=== PATIENT | female | born 2000 | race Hispanic/Latino ===

== ENCOUNTER 2023-09-30 19:23 | Inpatient (IN) | payer MEDICAID, OTHER ==
[~2023-09-30 19:23] MED LIST: Bupivacaine 0.25% HCL 30 ML VIAL ONE; Bupivacaine PF 0.5% 30 ML VIAL ONE; Lidocaine 2% MPF 10 ML AMP (For Epidural Use) ONE
[2023-09-30] MEDS ORDERED: HYDROcodone/Acetaminophen 5/325 mg Tablet PO PRN (20:54)
[2023-09-30] MEDS ORDERED: Oxytocin 30 units/NS 500 ML 500 ML IV SCH ×3 (20:54)
[2023-09-30] MEDS ORDERED: Diphenoxylate HCl/Atropine Tablet PO PRN (20:54)
[2023-09-30] MEDS ORDERED: Tranexamic Acid 1,000 MG/10 ML VIAL IVP PRN (20:54)
[2023-09-30] MEDS ORDERED: Acetaminophen 500 MG TAB PO PRN (20:54)
[2023-09-30] MEDS ORDERED: Lidocaine 1% (PF) 30 ML VIAL SC PRN (20:54)
[2023-09-30] MEDS ORDERED: Carboprost 250 MCG/ML AMP IM PRN (20:54)
[2023-09-30] MEDS ORDERED: Misoprostol 200 MCG TAB PR PRN (20:54)
[2023-09-30] MEDS ORDERED: Ibuprofen 800 MG TAB PO PRN (20:54)
[2023-09-30] MEDS ORDERED: fentaNYL 50 mcg/mL 1 mL Vial SLOW IVP PRN (20:54)
[2023-09-30] MEDS ORDERED: Ondansetron PF 4 MG/2 ML Vial IVP PRN (20:54)
[2023-09-30] MEDS ORDERED: Promethazine HCl 25 MG/ML VIAL IM PRN (20:54)
[2023-09-30] MEDS ORDERED: Methylergonovine 0.2 MG/ML VIAL IM PRN (20:54)
[2023-09-30] MEDS: Misoprostol 100 MCG TAB PO SCH (21:11)
[2023-09-30 21:44] LABS: Hematocrit 33.8 % (34.9-44.5); Hemoglobin 11.4 g/dL (12.0-15.5); Mean Corpuscular HGB CONC 33.7 g/dL (32.0-36.0); Mean Corpuscular Hemoglobin 26.2 pg (27.0-33.0); Mean Corpuscular Volume 77.7 fl (81.6-98.3); Mean Platelet Volume 10.6 fl (7.4-10.4); Platelet Count 258 10x3/uL (150-450); RBC Distribution Width 16.7 % (11.5-14.5); Red Blood Cell (RBC) Count 4.35 10x6/uL (3.90-5.03); White Blood Cell (WBC) Count 7.9 10x3/uL (3.5-10.5)
[2023-09-30 21:59] LABS: ALT (SGPT) 18 U/L (8-55); AST (SGOT) 20 U/L (5-34); Albumin 2.7 g/dL (3.5-5.0); Alkaline Phosphatase 232 U/L (40-110); Anion Gap 13 mmol/L (10-20); BUN (Urea Nitrogen) 14 mg/dL (7.0-18.7); Bilirubin, Total 0.4 mg/dL (0.2-1.2); Calc. Creatinine Clearance 163 mL/min (70-130); Calcium 8.3 mg/dL (7.8-10.44); Carbon Dioxide 17 mmol/L (22-29); Chloride 110 mmol/L (98-107); Estimated GFR 118; Globulin 2.7 g/dL (2.4-3.5); Glucose 84 mg/dL (70-105); Potassium 3.7 mmol/L (3.5-5.1); Protein, Total 5.4 g/dL (6.0-8.3); Sodium 136 mmol/L (136-145)
[2023-09-30 22:24] LABS: Syphilis Antibody Nonreactive (Nonreactive); Syphilis Antibody Index 0.07 S/CO (<1.00 Non-Reactive)
[2023-09-30 22:26] LABS: HBSAg Index 0.19 S/CO (0-0.99); Hep B Surf Ag - L&D Non-Reactive S/CO (NonReactive)
[2023-10-01] MEDS: Misoprostol 100 MCG TAB PO SCH ×2 (03:06→07:07)
[2023-10-01] MEDS: Lactated Ringer's 1,000 ML IV SCH ×3 (07:07→15:35)
[2023-10-01] MEDS: hydrALAZINE 20 MG/ML VIAL SLOW IVP PRN ×2 (07:35→20:58)
[2023-10-01] MEDS ORDERED: Magnesium Sulfate 20 gm/500 ml 0 GM/0 ML BAG ONE (07:43)
[2023-10-01 09:35] VITALS: BMI 38.3
[2023-10-01] MEDS ORDERED: fentaNYL/Ropivacaine Epidural 100 ML ONE (13:11)
[2023-10-01] MEDS: fentaNYL 2 mcg/Ropivacaine 0.2% Epidural 100 ML CADD EPIDURAL SCH ×2 (14:00→23:25)
[2023-10-01] MEDS ORDERED: Acetaminophen 325 MG TAB PO PRN (14:19)
[2023-10-01] MEDS ORDERED: Lactated Ringer's 500 ML IV PRN (14:19)
[2023-10-01] MEDS ORDERED: diphenhydrAMINE 50 MG/ML VIAL IVP PRN (14:19)
[2023-10-01] MEDS ORDERED: Moisturizing Cream (Eucerin) 113 GM JAR TOP PRN (14:19)
[2023-10-01] MEDS ORDERED: Promethazine HCl 25 MG/ML VIAL IM PRN (14:19)
[2023-10-01] MEDS ORDERED: ePHEDrine Sulfate 50 MG/10 ML VIAL SLOW IVP PRN (14:19)
[2023-10-01] MEDS ORDERED: Ondansetron PF 4 MG/2 ML Vial IVP PRN (14:19)
[2023-10-01] MEDS ORDERED: Naloxone HCl 0.4 mg/ml Vial IVP PRN ×2 (14:19)
[2023-10-01] MEDS ORDERED: Communication Order-Pharmacy FS SCH (14:30)
[2023-10-01] MEDS ORDERED: hydrALAZINE 20 MG/ML VIAL ONE (20:57)
[2023-10-01] MEDS: Ampicillin 2 GM in Sodium Chloride 0.9% 100 ML IVPB SCH (21:43)
[2023-10-02] MEDS ORDERED: CEFAZOLIN 2 GM VIAL ONE (00:27)
[2023-10-02] MEDS ORDERED: Azithromycin 500 MG VIAL ONE (00:27)
[2023-10-02] MEDS ORDERED: Morphine PF 10 MG/10 ML VIAL ONE (00:29)
[2023-10-02] MEDS ORDERED: Oxytocin 10 UNITS/ML VIAL ONE (00:29)
[2023-10-02] MEDS ORDERED: diphenhydrAMINE 50 MG/ML VIAL IVP PRN (00:46)
[2023-10-02] MEDS ORDERED: Ketorolac Tromethamine 30 MG (1 mL) VIAL IVP PRN (00:46)
[2023-10-02] MEDS ORDERED: Naloxone HCl 0.4 mg/ml Vial IVP PRN ×2 (00:46)
[2023-10-02] MEDS ORDERED: Moisturizing Cream (Eucerin) 113 GM JAR TOP PRN (00:46)
[2023-10-02] MEDS ORDERED: Naloxone HCl 0.4 mg/ml Vial IV PRN (00:46)
[2023-10-02] MEDS ORDERED: Promethazine HCl 25 MG/ML VIAL IM PRN ×2 (00:46→03:45)
[2023-10-02] MEDS ORDERED: Ondansetron PF 4 MG/2 ML Vial IVP PRN ×2 (00:46)
[2023-10-02] MEDS ORDERED: fentaNYL 50 mcg/mL 1 mL Vial SLOW IVP PRN (00:46)
[2023-10-02] MEDS ORDERED: Promethazine HCl 25 MG SUPP PR PRN (00:46)
[2023-10-02] MEDS ORDERED: Meperidine HCl/PF 25 MG (1 mL) VIAL SLOW IVP PRN (00:46)
[2023-10-02] MEDS ORDERED: Ondansetron PF 4 MG/2 ML Vial ONE (01:00)
[2023-10-02] MEDS ORDERED: Communication Order-Pharmacy FS SCH (01:00)
[2023-10-02] MEDS ORDERED: Ketorolac Tromethamine 30 MG (1 mL) VIAL IVP SCH (01:00)
[2023-10-02] MEDS ORDERED: Dexamethasone 4 mg/ml Vial ONE (01:00)
[2023-10-02] MEDS ORDERED: fentaNYL 50 mcg/mL 1 mL Vial ONE (01:13)
[2023-10-02] MEDS ORDERED: Midazolam HCl 2 mg/2 ml Vial ONE (01:13)
[2023-10-02] MEDS ORDERED: Bisacodyl 10 MG SUPP PR PRN (03:45)
[2023-10-02] MEDS ORDERED: hydrALAZINE 20 MG/ML VIAL SLOW IVP PRN ×2 (03:45→15:44)
[2023-10-02] MEDS ORDERED: Boostrix 0.5 ML (Tdap) VIAL (>/=7 yrs of age) IM ONE ×2 (03:45→15:44)
[2023-10-02] MEDS ORDERED: diphenhydrAMINE 25 MG CAP PO PRN (03:45)
[2023-10-02] MEDS ORDERED: Acetaminophen 325 MG TAB PO PRN (03:45)
[2023-10-02] MEDS ORDERED: Lanolin Ointment 7 GM TUBE TOP PRN (03:45)
[2023-10-02] MEDS ORDERED: Ondansetron PF 4 MG/2 ML Vial SLOW IVP PRN (03:45)
[2023-10-02] MEDS ORDERED: Simethicone Chewable 80 MG TAB PO PRN (03:45)
[2023-10-02] MEDS ORDERED: Ibuprofen 800 MG TAB PO SCH (06:00)
[2023-10-02] MEDS: Misoprostol 100 MCG TAB PO SCH (07:16)
[2023-10-02] MEDS: Lactated Ringer's 1,000 ML IV SCH ×4 (07:16→12:33)
[2023-10-02] MEDS: Ampicillin 2 GM in Sodium Chloride 0.9% 100 ML IVPB SCH ×3 (07:19→15:36)
[2023-10-02] MEDS: Ferrous Sulfate 325 MG TAB PO SCH (07:19)
[2023-10-02] MEDS ORDERED: Docusate 100 MG CAP PO SCH (09:00)
[2023-10-02] MEDS ORDERED: Prenatal Vitamin 1 TAB PO SCH (09:00)
[2023-10-02] MEDS ORDERED: Meperidine HCl/PF 25 MG (1 mL) VIAL IM PRN (15:44)
[2023-10-02] MEDS: HYDROcodone/Acetaminophen 5/325 mg Tablet PO PRN (16:44)
[2023-10-02] MEDS: Ibuprofen 800 MG TAB PO SCH (21:14)
[2023-10-03] MEDS: HYDROcodone/Acetaminophen 5/325 mg Tablet PO PRN ×5 (02:45→21:41)
[2023-10-03 04:34] LABS: Hemoglobin 9.7 g/dL (12.0-15.5); Mean Corpuscular HGB CONC 33.4 g/dL (32.0-36.0); Mean Corpuscular Hemoglobin 26.4 pg (27.0-33.0); Mean Corpuscular Volume 78.8 fl (81.6-98.3); Platelet Count 242 10x3/uL (150-450); RBC Distribution Width 17.4 % (11.5-14.5); Red Blood Cell (RBC) Count 3.68 10x6/uL (3.90-5.03); White Blood Cell (WBC) Count 15.6 10x3/uL (3.5-10.5)
[2023-10-03] MEDS: Ibuprofen 800 MG TAB PO SCH ×3 (05:21→22:43)
[2023-10-03] MEDS ORDERED: Ibuprofen 800 MG TAB PO SCH (06:00)
[2023-10-03] MEDS: Ferrous Sulfate 325 MG TAB PO SCH (20:20)
[2023-10-03] MEDS: Simethicone Chewable 80 MG TAB PO PRN (20:20)
[2023-10-04] MEDS: Ibuprofen 800 MG TAB PO SCH ×2 (05:27→13:23)
[2023-10-04] MEDS: HYDROcodone/Acetaminophen 5/325 mg Tablet PO PRN (05:27)
[2023-10-04] MEDS: Simethicone Chewable 80 MG TAB PO PRN (08:26)
[2023-10-04] MEDS: Ferrous Sulfate 325 MG TAB PO SCH (08:26)
[2023-10-04] MEDS ORDERED: Docusate 100 MG CAP PO SCH (09:00)
[2023-10-04 13:42] VITALS: BP 109/53; TEMP 98.2
== END 2023-10-04 15:50 | disposition home or self-care (01) | DRG 786 ==
LOC: CSHLD 19:23 → CSHPP 10-02 03:49
PROVIDERS: ADMIT Family Medicine; ATTEND Family Medicine
PROC: 3E0P7VZ Introduction of Hormone into Female Reproductive, Via Natural or Artificial Opening (ICD-10-PCS; 2023-10-01)
PROC: 10907ZC Drainage of Amniotic Fluid, Therapeutic from Products of Conception, Via Natural or Artificial Opening (ICD-10-PCS; 2023-10-01)
PROC: 10H07YZ Insertion of Other Device into Products of Conception, Via Natural or Artificial Opening (ICD-10-PCS; 2023-10-01)
PROC: 10D00Z1 Extraction of Products of Conception, Low, Open Approach (ICD-10-PCS; principal; 2023-10-02)
DX: O24.420 Gestational diabetes mellitus in childbirth, diet controlled (principal); O41.1230 Chorioamnionitis, third trimester, not applicable or unspecified; O99.214 Obesity complicating childbirth; Z3A.39 39 weeks gestation of pregnancy; Z37.0 Single live birth; O62.1 Secondary uterine inertia; O32.4XX0 Maternal care for high head at term, not applicable or unspecified
CPT/HCPCS: 36415; 36416; 51702; 80053; 85027; 86780; 86850; 86900; 86901; 87340; 88307; 90715; J0290; J0360; J0456; J1100; J1580; J1885; J2250; J2274; J2405; J2590; J3010; J3490; J7120; S0020